=== PATIENT | male | born 1960 | race African-American/Black ===

== ENCOUNTER 2019-04-02 22:31 | Emergency (ER) | payer MEDICAID, OTHER ==
[~2019-04-02] VITALS: Ht 177.8 cm; Wt 100.0 kg
[2019-04-03] MEDS ORDERED: BACITRACIN ZINC OINT UDPKT TOP ONE (00:45)
[2019-04-03] MEDS ORDERED: LIDOCAINE HCL/PF 1% 10 MG/ML 5ML VIAL IJ ONE (00:45)
[2019-04-03] MEDS ORDERED: HYDROCODONE/ACETAMINOPHEN 5/325MG TABLET PO PRN (00:45)
[2019-04-03 02:00] VITALS: BP 128/74
== END 2019-04-03 03:11 | disposition home or self-care (01) ==
LOC: ER 22:31
DX: S91.312A Laceration without foreign body, left foot, initial encounter (principal); S80.212A Abrasion, left knee, initial encounter; S80.211A Abrasion, right knee, initial encounter; Z88.9 Allergy status to unspecified drugs, medicaments and biological substances; Z98.890 Other specified postprocedural states; W26.8XXA Contact with other sharp object(s), not elsewhere classified, initial encounter; Y93.89 Activity, other specified; Y92.89 Other specified places as the place of occurrence of the external cause; Y99.8 Other external cause status
CPT/HCPCS: 12002; 73630; 99283; J3490; Z7610